=== PATIENT | male | born 1960 | race Caucasian/White ===

== ENCOUNTER 2021-03-10 19:37 | Emergency (ER) | payer OTHER ==
[~2021-03-10] VITALS: Ht 177.8 cm; Wt 102.1 kg
== END 2021-03-10 23:05 | disposition home or self-care (01) ==
LOC: ER 19:37
DX: S09.90XA Unspecified injury of head, initial encounter (principal); S13.4XXA Sprain of ligaments of cervical spine, initial encounter; S93.401A Sprain of unspecified ligament of right ankle, initial encounter; M79.602 Pain in left arm; M79.601 Pain in right arm; Z88.8 Allergy status to other drugs, medicaments and biological substances; V28.4XXA Motorcycle driver injured in noncollision transport accident in traffic accident, initial encounter; Y92.410 Unspecified street and highway as the place of occurrence of the external cause
CPT/HCPCS: 36415; 70450; 70486; 71260; 72125; 73610; 74177; 80053; 83690; 84702; 85025; 85610; 96374-59; 96375-59; 99284-25; A9270; G0480; J2405; J3010; Q9967

== ENCOUNTER 2023-07-05 21:31 | Emergency (ER) | payer OTHER | END 2023-07-06 00:24 | disposition home or self-care (01) | LOC: ER 21:31 | DX: R53.1 Weakness (principal); R41.0 Disorientation, unspecified; Z88.8 Allergy status to other drugs, medicaments and biological substances; Z79.82 Long term (current) use of aspirin; F17.200 Nicotine dependence, unspecified, uncomplicated ==

== ENCOUNTER 2024-06-11 12:43 | Emergency (ER) | payer OTHER ==
[~2024-06-11] VITALS: Ht 177.8 cm; Wt 70.3 kg
[~2024-06-11 12:43] MED LIST: ASPI81CH PO; BACL10 PO; ESCITALOPRAM OXA5 MG PO; GABA100; Methocarbamol500 MG PO; OXYC10TA19; OXYC5 PO
[2024-06-11 13:30] VITALS: BP 124/90
== END 2024-06-11 13:52 | disposition home or self-care (01) ==
LOC: ER 12:43
DX: Z00.8 Encounter for other general examination (principal); F17.200 Nicotine dependence, unspecified, uncomplicated; Z88.8 Allergy status to other drugs, medicaments and biological substances
CPT/HCPCS: 99282

== ENCOUNTER 2024-08-10 10:55 | Inpatient (IN) | payer OTHER ==
[~2024-08-10] VITALS: Ht 177.8 cm; Wt 86.4 kg
[2024-08-10] MEDS ORDERED: Acetaminophen 325 MG TABLET PO PRN (13:20)
[2024-08-10] MEDS ORDERED: Melatonin 3 MG Tab PO PRN (13:20)
[2024-08-10] MEDS ORDERED: Aluminum Hydroxide 320MG/5ML 473 ML PO PRN (13:20)
[2024-08-10 13:23] VITALS: BP 143/89
[2024-08-10] MEDS ORDERED: TraZODone HCl 50 MG Tab PO PRN (13:25)
[2024-08-10] MEDS ORDERED: Ibuprofen 600 MG Tab PO PRN (13:25)
[2024-08-10] MEDS ORDERED: Cyclobenzaprine HCl 10 MG Tab PO PRN (13:30)
[2024-08-10] MEDS ORDERED: Nicotine 21 MG PATCH TOP SCH (14:00)
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
--- NOTE | 2024-08-10 16:35 | NUR ---
SHIFT SUMMARY: PT COOPERATIVE WITH CARE AND COMPLIANT WITH MEDICATIONS. PARTIPATED IN MILIEU AND ENGAGED WITH STAFF AND OTHER PATIENTS. PROVIDED WITH NICOTINE PATCH. PT REPORTED THAT HE HAS USED AN INHALER IN THE PAST AND WOULD LIKE TO HAVE ONE HERE. HE WAS UNABLE TO REMEBER THE NAME OF THE INHALER, STATED IT HAS BEEN AWHILE SINCE HE HAD ONE BUT IT WAS FILLED AT [facility]. CALL PLACED TO [facility], THEY WERE NOT ABLE TO LOCATE AN INHALER GOING BACK TO 2021.
[2024-08-10 20:05] VITALS: BP 145/92
[2024-08-10] MEDS ORDERED: Lithium Carbonate 300 MG Cap PO SCH (21:00)
--- NOTE | 2024-08-11 04:12 | NUR ---
PT WAS VISIBLE ON THE UNIT AND ITNERACTED APPROPRIATELY WITH PEERS. HYGIENE ADEQUATE. PT WAS COMPLIANT WITH MEDICATIONS AND DENIES SI/HI AND AVH. PT IS CURRENTLY IN BED WITH EYES CLOSED SLEEPING IN NAD. RESPIRATIONS EVEN AND UNLABORED. CHECKS DONE Q15.
[2024-08-11] MEDS ORDERED: Multivitamins 1 Tab PO SCH (09:00)
[2024-08-11] MEDS ORDERED: buPROPion HCL 150 MG TAB.SR.12H PO SCH (09:00)
[2024-08-11 10:12] VITALS: BP 149/104
--- NOTE | 2024-08-11 10:51 | NUR ---
PT ALERT, ORIENTED AND COOPERATIVE WITH CARE. COMPLIANT WITH MEDICATIONS. DISCUSSED ELEVATED B/P WITH PT. HE STATES THAT HE HAS BEEN ON BLOOD PRESSURE MEDICATION BUT IT HAS BEEN A LONG TIME AGO, HE IS UNSURE OF WHAT THE NAME OF IT WAS. SPOKE WITH PROVIDER AND HE HAS ORDERED A HOSPITALIST CONSULT. THIS RN NOTIFIED NEXT UP HOSPITALIST DR. PARADA.
[2024-08-11] MEDS ORDERED: AmLODIPine Besylate 5 MG Tab PO SCH (11:04)
[2024-08-11 11:58] VITALS: BP 145/97
[2024-08-11] MEDS ORDERED: Peg 400/Hypromellose/Glycerin 15 DROP/ML BTL BOTHEYES PRN (16:55)
--- NOTE | 2024-08-11 17:21 | NUR ---
SHIFT SUMMARY: PT CALM, COOPERATIVE AND ORIENTED THROUGH OUT SHIFT. HE DENIED SI, HI OR AVH. ENGAGED IN GROUP MILIEU AND MEALS. C/O DRYNESS TO HIS R EYE AND REQUESTED TO HAVE DROPS. ORDER OBTAINED FROM PROVIDER.
[2024-08-11 20:10] VITALS: BP 157/94
--- NOTE | 2024-08-12 04:14 | NUR ---
PT IS VISIBLE ON THE UNIT AND INTERACTS APPROPRIATELY WITH PEERS. HYGIENE GOOD. PT IS COMPLIANT WITH MEDICATIONS AND DENIES SI/HI, WELL AVH. EDUCATED PT ABOUT USING MEDITATION A PAIN INTERVENTION, INCLUDING HOW TO DO IT. PT VERBALIZED UNDERSTANDING. CURRENTLY, PT IS IN BED WITH EYES CLOSED RESTING COMFORTABLY IN NAD. RESPIRATIONS EVEN AND UNLABORED. CHECKS DONE Q15.
[2024-08-12 07:54] VITALS: BP 128/97
[2024-08-12] MEDS ORDERED: AmLODIPine Besylate 5 MG Tab PO SCH (09:00)
[2024-08-12 10:21] LABS: Hematocrit 45.6 % (37.0-53.0); Hemoglobin 15.5 g/dL (13.5-17.5); Mean Corpuscular HGB 31.3 pg (26.0-34.0); Mean Corpuscular Volume 92 fL (80-100); Mean Platelet Volume 9.6 fL (9.1-12.4); Platelet Count 291 K/mm3 (150-400); RDW Coefficient Variation 12.8 % (11.7-14.2); RDW Standard Deviation 43.6 fL (35.1-46.3); Red Blood Cell Count 4.95 M/mm3 (4.30-5.90); White Blood Cell Count 6.76 K/mm3 (4.00-11.30)
[2024-08-12 10:32] LABS: Bun/Creatinine Ratio 28.1 (12.0-20.0); Calcium, Blood 9.5 mg/dL (8.5-10.1); Creatinine, Blood 0.78 mg/dL (0.60-1.20); Potassium, Blood 4.2 mmol/L (3.5-5.5)
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
--- NOTE | 2024-08-12 17:02 | NUR ---
SHIFT SUMMARY: PT ALERT, ORIENTED AND COOPERATIVE. DENIES SI, HI OR AVH. ENAGAGED IN MILIEU AND MEALS. MET WITH THE HOSPITALIST, NEW ORDERS PLACED FOR IMAGING AND MEDICATION.
[2024-08-12] MEDS ORDERED: Lidocaine HCl 4% Cream 5 GM TOP SCH (21:00)
[2024-08-13 02:59] VITALS: BP 142/99
--- NOTE | 2024-08-13 04:20 | NUR ---
PT IS VISIBLE ON THE UNIT AND INTERACTS APPROPRIATELY WITH PEERS. HYGIENE ADEQUATE. PT IS COMPLIANT WITH MEDICATIONS AND DENIES SI/HI AND AVH. PT C/O HE ALWAYS HAS PAIN 10/10 "ALL OVER," BUT DID ACKNOWLEDGE THE MEDICATIONS "HELP A LITTLE." PT ENCOURAGED TO MEDITATE, STRETCH AND CONSIDER PHYSICAL THERAPY WHEN DISCHARGED PART OF HIS PAIN MANAGEMENT. CURRENTLY, PT IS IN BED RESTING COMFORTABLY WIH EYES CLOSED IN NAD. RESPIRATIONS EVEN AND UNLABORED. CHECKS DONE Q15.
[2024-08-13 09:12] VITALS: BP 126/97
--- NOTE | 2024-08-13 12:22 | NUR ---
PT DENIED SI. HI, ANXIETY AND AVH. HE REPORTED 6/10w GENERALIZED PAIN AND PAIN TO HIS RIGHT WRIST. HE REPORTED "I FEEL GOOD AND TIRED :)" HE WAS COMPLIANT WITH MEDICATIONS AND HAS BEEN ACTIVE ON THE MILIEU AND HAS ATTENDED GROUPS.
--- NOTE | 2024-08-13 12:56 | NUR ---
PT MEDICATED WITH PRN EYE DROPS. SPOKE WITH IMAGING WRIST XRAY WILL BE CANCELLED AND CAN BE REORDERED WHEN TRANSPORT TO MAIN [facility]OS[facility] AVAILABLE
--- NOTE | 2024-08-13 16:58 | NUR ---
Pyscho-Social follow - up Per the social services counselor assessment, Pt Requested [employer]. Asked paint striping machine operator to request [employer]cher [employer] to come visit pt. Waiting on response.
--- NOTE | 2024-08-13 17:45 | NUR ---
PT HAS BEEN OUT IN THE PT MILIEU ALL DAY. HE ASKED FOR ARTIFICIAL TEARS AT 9:17, 12:56 AND 16:56. HE TOOK ADVIL AT 16:56 FOR 8/10w PAIN IN HIS KNEES, FEET AND BACK, IT RESOLVED TO 6/10w WHICH IS HIS TOLERABLE LEVEL OF PAIN.
[2024-08-14 03:22] VITALS: BP 136/95
--- NOTE | 2024-08-14 05:18 | NUR ---
Patient spent most of the evening socializing with peers. He was cooperative with assessment. He took his medication wihtout issue. He denied new concerns at this time. Plan of care ongoing. He appeared to be sleeing in his bed for 7.5 hours.
[2024-08-14 08:33] VITALS: BP 127/96
--- NOTE | 2024-08-14 11:15 | NUR ---
"Spiritual Care | Pt. request Pt. is brought into the consult room. Introductions are made and Pt. is pleasant. Facilitate a lengthy life review. Pt. verbalized the recent passing of his and the grief he has experienced. Listen with empathy and a calming presence. Pastoral care and theratutic listening is given. Pt. displayed an openness to matters of roopa. Pt. displayed a more hopeful attitude. Prayed with Pt. Pt. verbalized gratitude for the spiritual care visit."
--- NOTE | 2024-08-14 12:01 | NUR ---
Pt APD Application Update I reached out to our local Transition of Care Coordinators at [facility] and had them look into where this pts case stands. She couldnt find much information. It stated they requested documentation from him and they had not recieved them I am going to have the Pt reach out to the [place] office to see what they requested and to have his case transfered to the [place] Office. Will update when we get more information. The rn field case manager I spoke to, Cathi Zhao wasnt sure if he was in the 45 day wait period yet due to not providing these documents.
--- NOTE | 2024-08-14 17:03 | NUR ---
SHIFT SUMMARY: PT ALERT, ORIENTED AND COOPERATIVE. DENIES SI, HI OR AVH. COMPLAINT WITH MEDICATIONS. PT ENGAGED IN GROUPS AND DEPT MILIEU. PT USED THE SENSORY ROOM IN THE AFTERNOON. WALKED LAPS IN THE HALLWAY, SINGING WITH HEADPHONES ON.
[2024-08-14 21:10] VITALS: BP 147/87
--- NOTE | 2024-08-15 04:51 | NUR ---
Patient spent most of the evening watching TV and socializing with peers. He was cooperative with assessment. He took his scheduled medication and requested PRN medication for sleep without issue. He denied new concerns at this time. He is able to make his needs known. Plan of care ongoing. He appeared to be sleeping in his bed for 7.5 hours.
[2024-08-15 09:00] VITALS: BP 134/85
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
[2024-08-15 20:40] VITALS: BP 154/90
--- NOTE | 2024-08-16 05:00 | NUR ---
Patient spent most of the evening listening to music and walking up and down the hallway. He was cooperative with assessment. He took his scheduled medication in addition to several requested PRN medication without issue. He denied new concerns at this time. Plan of care ongoing. He requested and was provided a PRN for pain and artificial tears at 0020. He appeared to be resting in his bed for 8 hours.
[2024-08-16 08:52] VITALS: BP 118/87
[2024-08-16 09:29] LABS: Lithium 0.27 mmol/L (0.60-1.20)
--- NOTE | 2024-08-16 17:23 | NUR ---
SHIFT SUMMARY PT STATES HE HAS HAD A GOOD DAY. HE HAS BEEN IN GROUPS AND DANCING IN THE HALLWAY WITH HEAD PHONES ON. DENIES SI. EYE DROPS GIVEN ON REQUEST PRN. ABLE TO COME TO STAFF TO REQUEST HIS NEEDS. COPING SKILLS HAVE IMPROVED. COMMUNICATION HAS BEEN INCREASINGLY GETTING BETTER. WILL CONTINUE TO MONITOR.
--- NOTE | 2024-08-16 17:27 | NUR ---
Pt APD Follow up information Pt was able to get through to [facility] to give them permission to talk to me. I was able to speak with a Marketing Designer in [place] named Zully who let me know that his case opened in January. There was multiple attempts in reaching out to him via his home address and no contact was able to be made. They closed his case on March 29. He does have a [employer] rep Dara Wilde his daughter in law who I left a voicemail for to help reintiate his status. I will be sending out an email to the case workers on his behalf at [facility] in hopes I can help push his application back open as well.
[2024-08-16] MEDS ORDERED: Lithium Carbonate 300 MG TabCR PO SCH (21:00)
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
[2024-08-17 09:06] VITALS: BP 136/76
[2024-08-17] MEDS ORDERED: AMLO10 PO ×2 (13:00→13:01)
[2024-08-17] MEDS ORDERED: Cyclobenzaprine5 MG PO (13:02)
[2024-08-17] MEDS ORDERED: BUPR150ER PO (13:02)
[2024-08-17] MEDS ORDERED: LITH300ER PO (13:04)
[2024-08-17] MEDS ORDERED: NICO21TP TOP (13:06)
--- NOTE | 2024-08-17 18:44 | NUR ---
DISCHARGE SUMMARY PT AA&OX4. PLEASANT AND COOPERATIVE WITH CARE. SPEECH AND EYE CONTACT APPROPRIATE. COMPLIANT WITH PLAN OF CARE. DENIES SI. AVH. HE IS IN GOOD SPIRITS AND LOOKING FORWARD TO DC. DC MEDICATIONS, APPOINTMENTS REVIEWED WITH PT. HE VERBALIZED UNDERSTANDING. PT HAS NO QUESTIONS OR CONCERNS AT THIS TIME
== END 2024-08-17 14:05 | disposition home or self-care (01) | DRG 885 ==
LOC: BHU 10:55
PROVIDERS: Hospitalist; Psychiatry & Neurology Psychiatry; ADMIT Student in an Organized Health Care Education/Training Program
DX: F33.3 Major depressive disorder, recurrent, severe with psychotic symptoms (principal); R45.851 Suicidal ideations; I10 Essential (primary) hypertension; M25.531 Pain in right wrist; Z87.820 Personal history of traumatic brain injury; Z98.890 Other specified postprocedural states; Z88.8 Allergy status to other drugs, medicaments and biological substances; Z79.899 Other long term (current) drug therapy
CPT/HCPCS: 36415; 80048; 80178; 85027; 93005; 93010; A9270

== ENCOUNTER 2024-11-09 10:47 | Emergency (ER) | payer OTHER ==
[~2024-11-09] VITALS: Ht 177.8 cm; Wt 90.7 kg
[~2024-11-09 10:47] MED LIST changes: +AMLO10 PO; +BUPR150ER PO; +Cyclobenzaprine5 MG PO; +LITH300ER PO; +NICO21TP TOP
[2024-11-09] MEDS ORDERED: Ondansetron HCl 2 MG / ML 2ML Vial IV PRN (11:00)
[2024-11-09 11:36] LABS: BASOPHILS ABSOLUTE AUTO 0.08 K/mm3 (0.00-0.23); BASOPHILS PERCENT AUTO 1 % (0-2); EOSINOPHILS ABSOLUTE AUTO 0.36 K/mm3 (0.00-0.68); EOSINOPHILS PERCENT AUTO 4 % (0-6); Hematocrit 44.5 % (37.0-53.0); Hemoglobin 15.4 g/dL (13.5-17.5); IMMATURE GRAN ABSOLUTE AUTO 0.04 K/mm3 (0.00-0.10); IMMATURE GRAN PERCENT AUTO 0 % (0-1); LYMPHOCYTES ABSOLUTE AUTO 1.37 K/mm3 (0.84-5.20); LYMPHOCYTES PERCENT AUTO 13 % (21-46); MONOCYTES ABSOLUTE AUTO 0.64 K/mm3 (0.16-1.47); MONOCYTES PERCENT AUTO 6 % (4-13); Mean Corpuscular HGB 31.8 pg (26.0-34.0); Mean Corpuscular HGB Conc 34.6 g/dL (31.5-36.5); Mean Corpuscular Volume 92 fL (80-100); Mean Platelet Volume 9.2 fL (9.1-12.4); NEUTROPHILS ABSOLUTE AUTO 7.86 K/mm3 (1.96-9.15); NEUTROPHILS PERCENT AUTO 76 % (41-73); Platelet Count 364 K/mm3 (150-400); RDW Coefficient Variation 12.5 % (11.7-14.2); RDW Standard Deviation 42.4 fL (35.1-46.3); Red Blood Cell Count 4.85 M/mm3 (4.30-5.90); White Blood Cell Count 10.35 K/mm3 (4.00-11.30)
[2024-11-09 12:28] LABS: Source, Urine Clean Catch
[2024-11-09 12:51] LABS: Appearance, Urine Clear (Clear); Bilirubin, Urine Neg (Neg); Blood, Urine 1+ (Neg); Color, Urine Yellow (P-Yellow); Glucose Qualitative, Urine Neg (Neg); Ketones, Urine Neg (Neg); Leukocyte Esterase, Urine Neg (Neg); Nitrite, Urine Neg (Neg); Protein, Urine Neg (Neg); Urobilinogen, Urine NORM (Normal)
[2024-11-09 13:05] LABS: Albumin, Blood 3.6 g/dL (3.4-5.0); Albumin/Globulin Ratio 0.7 (0.8-1.8); Bilirubin, Total 0.4 mg/dL (0.1-1.0); Bun/Creatinine Ratio 24.6 (12.0-20.0); Creatinine, Blood 0.73 mg/dL (0.60-1.20); Potassium, Blood 5.1 mmol/L (3.5-5.5); Total Protein, Blood 8.6 g/dL (6.4-8.2)
[2024-11-09 13:05] LABS: Bacteria Rare /hpf; Squamous Epithelial Cells Few /hpf (Few); White Blood Cells, Urine 0-2 /hpf (0-5)
[2024-11-09] MEDS ORDERED: Prochlorperazine Edisylate 10 mg Vial IV ONE (14:10)
[2024-11-09] MEDS ORDERED: NS 1,000 ML IV SCH (14:10)
[2024-11-09] MEDS ORDERED: DiphenhydrAMINE HCl 50 MG/ML 1ML Vial IV ONE (14:15)
[2024-11-09 15:00] VITALS: BP 147/79
[2024-11-09] MEDS ORDERED: COMPAZINE10 MG PO (15:38)
== END 2024-11-09 15:50 | disposition home or self-care (01) ==
LOC: ER 10:47
PROVIDERS: Emergency Medicine; Student in an Organized Health Care Education/Training Program
DX: R11.2 Nausea with vomiting, unspecified (principal); F17.200 Nicotine dependence, unspecified, uncomplicated; Z79.899 Other long term (current) drug therapy; Z88.8 Allergy status to other drugs, medicaments and biological substances
CPT/HCPCS: 74176; 80053; 81001; 83690; 85025; 93005; 93010; 96374; 96375; 99284-25; J0780; J1200; J2405; J7030

== ENCOUNTER 2024-12-02 15:42 | Emergency (ER) | payer MEDICARE, OTHER ==
[~2024-12-02] VITALS: Ht 172.7 cm; Wt 81.7 kg
[~2024-12-02 15:42] MED LIST changes: +COMPAZINE10 MG PO
[2024-12-02 15:50] VITALS: BP 109/79
[2024-12-02 16:23] LABS: BASOPHILS ABSOLUTE AUTO 0.08 K/mm3 (0.00-0.23); BASOPHILS PERCENT AUTO 1 % (0-2); EOSINOPHILS ABSOLUTE AUTO 0.42 K/mm3 (0.00-0.68); EOSINOPHILS PERCENT AUTO 5 % (0-6); Hematocrit 42.7 % (37.0-53.0); Hemoglobin 14.4 g/dL (13.5-17.5); IMMATURE GRAN ABSOLUTE AUTO 0.03 K/mm3 (0.00-0.10); IMMATURE GRAN PERCENT AUTO 0 % (0-1); LYMPHOCYTES ABSOLUTE AUTO 2.43 K/mm3 (0.84-5.20); LYMPHOCYTES PERCENT AUTO 28 % (21-46); MONOCYTES ABSOLUTE AUTO 0.55 K/mm3 (0.16-1.47); MONOCYTES PERCENT AUTO 6 % (4-13); Mean Corpuscular HGB Conc 33.7 g/dL (31.5-36.5); Mean Corpuscular Volume 92 fL (80-100); Mean Platelet Volume 9.8 fL (9.1-12.4); NEUTROPHILS ABSOLUTE AUTO 5.25 K/mm3 (1.96-9.15); NEUTROPHILS PERCENT AUTO 60 % (41-73); Platelet Count 303 K/mm3 (150-400); RDW Coefficient Variation 12.3 % (11.7-14.2); RDW Standard Deviation 41.6 fL (35.1-46.3); Red Blood Cell Count 4.64 M/mm3 (4.30-5.90); White Blood Cell Count 8.76 K/mm3 (4.00-11.30)
[2024-12-02 16:43] LABS: Albumin, Blood 3.6 g/dL (3.4-5.0); Albumin/Globulin Ratio 0.8 (0.8-1.8); Bilirubin, Total 0.5 mg/dL (0.1-1.0); Calcium, Blood 8.9 mg/dL (8.5-10.1); Creatinine, Blood 0.8 mg/dL (0.60-1.20); Globulin, Blood 4.3 g/dL (2.2-4.0); Potassium, Blood 3.7 mmol/L (3.5-5.5); Total Protein, Blood 7.9 g/dL (6.4-8.2)
[2024-12-02 17:06] LABS: Source, Urine Clean Catch
[2024-12-02 17:25] LABS: Appearance, Urine Hazy (Clear); Bilirubin, Urine Neg (Neg); Blood, Urine 2+ (Neg); Color, Urine Yellow (P-Yellow); Glucose Qualitative, Urine 2+ (Neg); Ketones, Urine Neg (Neg); Leukocyte Esterase, Urine Neg (Neg); Nitrite, Urine Neg (Neg); Protein, Urine 2+ (Neg); Urobilinogen, Urine NORM (Normal)
[2024-12-02 17:34] LABS: Bacteria Few /hpf; Calcium Oxalate Crystals Many /hpf; Hyaline Casts 0-2 /lpf (0-2); Mucus Light (0-Heavy); Red Blood Cells, Urine 0-2 /hpf (0-2); Squamous Epithelial Cells Rare /hpf (Few); White Blood Cells, Urine 0-2 /hpf (0-5)
[2024-12-02] MEDS ORDERED: Ketorolac Tromethamine 15mg Vial IV ONE (19:20)
== END 2024-12-02 19:30 | disposition home or self-care (01) ==
LOC: ER 15:42
PROVIDERS: Physician Assistant
DX: N20.0 Calculus of kidney (principal); K59.00 Constipation, unspecified; Z88.8 Allergy status to other drugs, medicaments and biological substances; Z79.899 Other long term (current) drug therapy; F17.200 Nicotine dependence, unspecified, uncomplicated
CPT/HCPCS: 74177; 80053; 81001; 83690; 85025; 96374-59; 99284-25; J1885; Q9967

== ENCOUNTER 2025-03-03 20:49 | Emergency (ER) | payer MEDICARE, OTHER ==
[~2025-03-03] VITALS: Ht 177.8 cm; Wt 81.7 kg
[2025-03-03 21:26] LABS: BASOPHILS ABSOLUTE AUTO 0.02 K/mm3 (0.00-0.23); BASOPHILS PERCENT AUTO 0 % (0-2); EOSINOPHILS ABSOLUTE AUTO 0.24 K/mm3 (0.00-0.68); EOSINOPHILS PERCENT AUTO 4 % (0-6); Hematocrit 41.1 % (37.0-53.0); IMMATURE GRAN ABSOLUTE AUTO 0.03 K/mm3 (0.00-0.10); IMMATURE GRAN PERCENT AUTO 0 % (0-1); LYMPHOCYTES ABSOLUTE AUTO 0.56 K/mm3 (0.84-5.20); LYMPHOCYTES PERCENT AUTO 8 % (21-46); MONOCYTES ABSOLUTE AUTO 0.36 K/mm3 (0.16-1.47); MONOCYTES PERCENT AUTO 5 % (4-13); Mean Corpuscular HGB 30.2 pg (26.0-34.0); Mean Corpuscular HGB Conc 34.1 g/dL (31.5-36.5); Mean Corpuscular Volume 89 fL (80-100); Mean Platelet Volume 9.2 fL (9.1-12.4); NEUTROPHILS ABSOLUTE AUTO 5.65 K/mm3 (1.96-9.15); NEUTROPHILS PERCENT AUTO 82 % (41-73); Platelet Count 255 K/mm3 (150-400); RDW Coefficient Variation 12.6 % (11.7-14.2); Red Blood Cell Count 4.64 M/mm3 (4.30-5.90); White Blood Cell Count 6.86 K/mm3 (4.00-11.30)
[2025-03-03 21:43] LABS: Albumin, Blood 3.9 g/dL (3.4-5.0); Albumin/Globulin Ratio 0.9 (0.8-1.8); Bun/Creatinine Ratio 39.7 (12.0-20.0); Calcium, Blood 9.1 mg/dL (8.5-10.1); Creatinine, Blood 0.58 mg/dL (0.60-1.20); Globulin, Blood 4.2 g/dL (2.2-4.0); Potassium, Blood 4.2 mmol/L (3.5-5.5); Total Protein, Blood 8.1 g/dL (6.4-8.2)
[2025-03-03] MEDS ORDERED: Ketorolac Tromethamine 30mg Vial IM ONE (22:00)
[2025-03-03] MEDS ORDERED: Ketorolac Tromethamine 30mg Vial IV ONE (22:10)
[2025-03-03 22:50] LABS: Source, Urine Voided
[2025-03-03 22:53] LABS: Bilirubin, Urine Neg (Neg); Blood, Urine 3+ (Neg); Glucose Qualitative, Urine Neg (Neg); Ketones, Urine 1+ (Neg); Leukocyte Esterase, Urine Neg (Neg); Nitrite, Urine Neg (Neg); Protein, Urine 1+ (Neg); Specific Gravity, Urine 1.025 (1.003-1.022); Urobilinogen, Urine 1+ (Normal)
[2025-03-03 22:55] LABS: Appearance, Urine Clear (Clear); Color, Urine Yellow (P-Yellow)
[2025-03-03 23:05] LABS: Bacteria Few /hpf; Mucus Light (0-Heavy); Squamous Epithelial Cells Few /hpf (Few); White Blood Cells, Urine 0-2 /hpf (0-5)
[2025-03-03] MEDS ORDERED: Magnesium Citrate 300 ML BTL PO ONE ×2 (23:10→23:45)
[2025-03-03] MEDS ORDERED: Miralax17 GM PO (23:10)
[2025-03-03 23:30] VITALS: BP 135/80
[2025-03-04] MEDS ORDERED: MIRALAX1714 PO (22:54)
[2025-03-04] MEDS ORDERED: DOCUSATE S283 MG/51 PR (22:54)
== END 2025-03-03 23:52 | disposition home or self-care (01) ==
LOC: ER 20:49
PROVIDERS: Emergency Medicine
DX: K59.00 Constipation, unspecified (principal); H91.8X1 Other specified hearing loss, right ear; R42 Dizziness and giddiness; I10 Essential (primary) hypertension; F17.200 Nicotine dependence, unspecified, uncomplicated; Z88.8 Allergy status to other drugs, medicaments and biological substances; Z79.899 Other long term (current) drug therapy
CPT/HCPCS: 70450; 74176; 80053; 81001; 83605; 85025; 93005; 93010; 96374; 99284-25; A9270; J1885

== ENCOUNTER 2025-03-04 10:54 | Emergency (ER) | payer MEDICARE, OTHER ==
[~2025-03-04] VITALS: Ht 177.8 cm; Wt 81.7 kg
[~2025-03-04 10:54] MED LIST changes: +Miralax17 GM PO
[2025-03-04 12:10] LABS: BASOPHILS ABSOLUTE AUTO 0.02 K/mm3 (0.00-0.23); BASOPHILS PERCENT AUTO 1 % (0-2); EOSINOPHILS ABSOLUTE AUTO 0.13 K/mm3 (0.00-0.68); EOSINOPHILS PERCENT AUTO 4 % (0-6); Hematocrit 40.4 % (37.0-53.0); Hemoglobin 14.1 g/dL (13.5-17.5); IMMATURE GRAN ABSOLUTE AUTO 0.01 K/mm3 (0.00-0.10); IMMATURE GRAN PERCENT AUTO 0 % (0-1); LYMPHOCYTES ABSOLUTE AUTO 0.49 K/mm3 (0.84-5.20); LYMPHOCYTES PERCENT AUTO 14 % (21-46); MONOCYTES ABSOLUTE AUTO 0.44 K/mm3 (0.16-1.47); MONOCYTES PERCENT AUTO 13 % (4-13); Mean Corpuscular HGB 30.7 pg (26.0-34.0); Mean Corpuscular HGB Conc 34.9 g/dL (31.5-36.5); Mean Corpuscular Volume 88 fL (80-100); Mean Platelet Volume 9.3 fL (9.1-12.4); NEUTROPHILS ABSOLUTE AUTO 2.39 K/mm3 (1.96-9.15); NEUTROPHILS PERCENT AUTO 69 % (41-73); Platelet Count 234 K/mm3 (150-400); RDW Coefficient Variation 12.6 % (11.7-14.2); RDW Standard Deviation 40.4 fL (35.1-46.3); Red Blood Cell Count 4.59 M/mm3 (4.30-5.90); White Blood Cell Count 3.48 K/mm3 (4.00-11.30)
[2025-03-04 12:36] LABS: Albumin, Blood 3.4 g/dL (3.4-5.0); Albumin/Globulin Ratio 0.8 (0.8-1.8); Bilirubin, Total 0.9 mg/dL (0.1-1.0); Bun/Creatinine Ratio 34.8 (12.0-20.0); Calcium, Blood 8.1 mg/dL (8.5-10.1); Creatinine, Blood 0.6 mg/dL (0.60-1.20); Globulin, Blood 4.4 g/dL (2.2-4.0); Potassium, Blood 3.9 mmol/L (3.5-5.5); Total Protein, Blood 7.8 g/dL (6.4-8.2)
[2025-03-04] MEDS ORDERED: Ondansetron HCl 2 MG / ML 2ML Vial IV ONE (16:55)
[2025-03-04] MEDS ORDERED: NS 1,000 ML IV SCH (17:00)
[2025-03-04] MEDS ORDERED: Ketorolac Tromethamine 30mg Vial IV ONE (17:20)
[2025-03-04 19:00] VITALS: BP 146/98
[2025-03-04 19:27] LABS: Source, Urine Clean Catch
[2025-03-04 19:56] LABS: Appearance, Urine Hazy (Clear); Bilirubin, Urine Neg (Neg); Blood, Urine 2+ (Neg); Color, Urine Yellow (P-Yellow); Glucose Qualitative, Urine Neg (Neg); Ketones, Urine 3+ (Neg); Leukocyte Esterase, Urine Neg (Neg); Nitrite, Urine Neg (Neg); Protein, Urine 2+ (Neg); Specific Gravity, Urine 1.025 (1.003-1.022); Urobilinogen, Urine 1+ (Normal)
[2025-03-04 20:05] LABS: Amorphous Light (0-Heavy); Bacteria Mod /hpf; Mucus Mod (0-Heavy); Squamous Epithelial Cells Few /hpf (Few); White Blood Cells, Urine 0-2 /hpf (0-5)
[2025-03-04] MEDS ORDERED: Bisacodyl 10 MG Supp PR ONE ×2 (20:15→22:50)
[2025-03-04 21:39] LABS: Chlamydia Trachomatis Urine NOT DETECTED (NOT DETECT); Neisseria Gonorrhoea Urine NOT DETECTED (NOT DETECT)
[2025-03-04] MEDS ORDERED: DOCUSATE S283 MG/51 PR (22:54)
[2025-03-04] MEDS ORDERED: MIRALAX1714 PO (22:54)
[2025-03-07 13:17] LABS: HEPATITIS B SURFACE ANTIBODY <3.10 IU/L; HEPATITIS B SURFACE ANTIGEN Negative (Negative); HEPATITIS BE ANTIBODY Negative (Negative); HEPATITIS BE ANTIGEN Negative (Negative)
== END 2025-03-04 23:14 | disposition home or self-care (01) ==
LOC: ER 10:54
PROVIDERS: Physician Assistant; Student in an Organized Health Care Education/Training Program
DX: K59.00 Constipation, unspecified (principal); I10 Essential (primary) hypertension; F17.200 Nicotine dependence, unspecified, uncomplicated; Z88.8 Allergy status to other drugs, medicaments and biological substances; Z79.899 Other long term (current) drug therapy; Z79.1 Long term (current) use of non-steroidal anti-inflammatories (NSAID)
CPT/HCPCS: 76870; 80053; 81001; 83605; 85025; 86707; 87086; 87340; 87350; 87491; 87591; 96361; 96374; 96375; 99284-25; A9270; J1885; J2405; J7030

== ENCOUNTER 2025-06-14 17:02 | Emergency (ER) | payer MEDICARE, OTHER ==
[~2025-06-14] VITALS: Ht 177.8 cm; Wt 79.4 kg
[~2025-06-14 17:02] MED LIST changes: +DOCUSATE S283 MG/51 PR; +MIRALAX1714 PO
[2025-06-14 17:12] VITALS: BP 130/88
[2025-06-14] MEDS ORDERED: Morphine Sulfate 4 MG/1 ML Injection IV ONE (17:15)
[2025-06-14] MEDS ORDERED: Ondansetron HCl 2 MG / ML 2ML Vial IV ONE (17:15)
[2025-06-14 18:29] LABS: BASOPHILS ABSOLUTE AUTO 0.04 K/mm3 (0.00-0.23); BASOPHILS PERCENT AUTO 1 % (0-2); EOSINOPHILS ABSOLUTE AUTO 0.37 K/mm3 (0.00-0.68); EOSINOPHILS PERCENT AUTO 6 % (0-6); Hematocrit 39.2 % (37.0-53.0); Hemoglobin 13.6 g/dL (13.5-17.5); IMMATURE GRAN ABSOLUTE AUTO 0.03 K/mm3 (0.00-0.10); IMMATURE GRAN PERCENT AUTO 0 % (0-1); LYMPHOCYTES ABSOLUTE AUTO 1.30 K/mm3 (0.84-5.20); LYMPHOCYTES PERCENT AUTO 19 % (21-46); MONOCYTES ABSOLUTE AUTO 0.51 K/mm3 (0.16-1.47); MONOCYTES PERCENT AUTO 8 % (4-13); Mean Corpuscular HGB Conc 34.7 g/dL (31.5-36.5); Mean Corpuscular Volume 87 fL (80-100); NEUTROPHILS ABSOLUTE AUTO 4.49 K/mm3 (1.96-9.15); NEUTROPHILS PERCENT AUTO 67 % (41-73); NRBC ABSOLUTE 0.00 K/mm3 (0.00-0.02); NRBC Auto 0.0 /100 WBC (0.0-0.2); Platelet Count 264 K/mm3 (150-400); RDW Coefficient Variation 12.3 % (11.7-14.2); RDW Standard Deviation 39.7 fL (35.1-46.3)
[2025-06-14 18:58] LABS: Alanine Aminotransfer (ALT/SGP 26.0 U/L (12-78); Albumin, Blood 3.3 g/dL (3.4-5.0); Albumin/Globulin Ratio 0.8 (0.8-1.8); Anion Gap 7.0 mmol/L (3-11); Aspartate Aminotrans (AST/SGOT 23.0 U/L (12-37); Bilirubin, Total 0.3 mg/dL (0.1-1.0); Blood Urea Nitrogen 20.0 mg/dL (8-24); CO2, Blood 27.0 mmol/L (21-32); Calcium, Blood 8.7 mg/dL (8.5-10.1); Chloride, Blood 106.0 mmol/L (98-108); Creatinine, Blood 0.65 mg/dL (0.60-1.20); Globulin, Blood 4.2 g/dL (2.2-4.0); Glucose, Blood 133.0 mg/dL (70-99); Magnesium, Blood 2.0 mg/dL (1.6-2.4); Potassium, Blood 3.8 mmol/L (3.5-5.5); Sodium, Blood 136.0 mmol/L (136-145); Total Protein, Blood 7.5 g/dL (6.4-8.2)
== END 2025-06-14 21:11 | disposition left against medical advice (07) ==
LOC: ER 17:02
PROVIDERS: Emergency Medicine
DX: K59.00 Constipation, unspecified (principal); R30.0 Dysuria; R31.9 Hematuria, unspecified; Z88.8 Allergy status to other drugs, medicaments and biological substances; I10 Essential (primary) hypertension; F17.200 Nicotine dependence, unspecified, uncomplicated
CPT/HCPCS: 74177; 80053; 83690; 83735; 85025; 99284-25; Q9967

== ENCOUNTER 2025-08-30 15:07 | Emergency (ER) | payer MEDICARE, OTHER ==
[~2025-08-30] VITALS: Ht 177.8 cm; Wt 81.7 kg
[2025-08-30] MEDS ORDERED: NS 1,000 ML IV SCH (15:25)
[2025-08-30 15:31] LABS: BASOPHILS ABSOLUTE AUTO 0.04 K/mm3 (0.00-0.23); BASOPHILS PERCENT AUTO 1 % (0-2); EOSINOPHILS ABSOLUTE AUTO 0.18 K/mm3 (0.00-0.68); EOSINOPHILS PERCENT AUTO 3 % (0-6); Hematocrit 37.2 % (37.0-53.0); Hemoglobin 12.5 g/dL (13.5-17.5); IMMATURE GRAN ABSOLUTE AUTO 0.01 K/mm3 (0.00-0.10); IMMATURE GRAN PERCENT AUTO 0 % (0-1); LYMPHOCYTES ABSOLUTE AUTO 0.86 K/mm3 (0.84-5.20); LYMPHOCYTES PERCENT AUTO 14 % (21-46); MONOCYTES ABSOLUTE AUTO 0.43 K/mm3 (0.16-1.47); MONOCYTES PERCENT AUTO 7 % (4-13); Mean Corpuscular HGB Conc 33.6 g/dL (31.5-36.5); Mean Corpuscular Volume 89 fL (80-100); NEUTROPHILS ABSOLUTE AUTO 4.67 K/mm3 (1.96-9.15); NEUTROPHILS PERCENT AUTO 76 % (41-73); NRBC ABSOLUTE 0.00 K/mm3 (0.00-0.02); NRBC Auto 0.0 /100 WBC (0.0-0.2); Platelet Count 256 K/mm3 (150-400); RDW Coefficient Variation 12.8 % (11.7-14.2); RDW Standard Deviation 41.3 fL (35.1-46.3)
[2025-08-30 16:02] LABS: Alanine Aminotransfer (ALT/SGP 23.0 U/L (12-78); Albumin, Blood 3.4 g/dL (3.4-5.0); Albumin/Globulin Ratio 0.8 (0.8-1.8); Anion Gap 7.0 mmol/L (3-11); Aspartate Aminotrans (AST/SGOT 24.0 U/L (12-37); Bilirubin, Total 0.6 mg/dL (0.1-1.0); Blood Urea Nitrogen 18.0 mg/dL (8-24); CO2, Blood 27.0 mmol/L (21-32); Calcium, Blood 8.6 mg/dL (8.5-10.1); Chloride, Blood 107.0 mmol/L (98-108); Creatinine, Blood 0.6 mg/dL (0.60-1.20); Globulin, Blood 4.1 g/dL (2.2-4.0); Glucose, Blood 136.0 mg/dL (70-99); Potassium, Blood 3.7 mmol/L (3.5-5.5); Sodium, Blood 137.0 mmol/L (136-145); Total Protein, Blood 7.5 g/dL (6.4-8.2)
[2025-08-30 17:01] LABS: Source, Urine Clean Catch
[2025-08-30 17:08] VITALS: BP 135/86
[2025-08-30 17:20] LABS: Bilirubin, Urine Neg (Neg); Color, Urine Yellow (P-Yellow); Glucose Qualitative, Urine Neg (Neg); Ketones, Urine Neg (Neg); Leukocyte Esterase, Urine Neg (Neg); Protein, Urine 1+ (Neg); Specific Gravity, Urine 1.010 (1.003-1.022); Urobilinogen, Urine NORM (Normal)
[2025-08-30 18:10] LABS: Red Blood Cells, Urine 0-2 /hpf (0-2); White Blood Cells, Urine 0-2 /hpf (0-5)
== END 2025-08-30 18:35 | disposition left against medical advice (07) ==
LOC: ER 15:07
PROVIDERS: Student in an Organized Health Care Education/Training Program
DX: R10.31 Right lower quadrant pain (principal); R11.0 Nausea; F17.200 Nicotine dependence, unspecified, uncomplicated; Z79.899 Other long term (current) drug therapy; Z88.8 Allergy status to other drugs, medicaments and biological substances
CPT/HCPCS: 74177; 80053; 81001; 83690; 85025; 99284-25; J7030; Q9967